=== PATIENT | male | born 1960 | race Caucasian/White ===

== ENCOUNTER 2018-09-11 06:04 | Emergency (ER) | payer MEDICAID ==
[2018-09-11] MEDS ORDERED: OXYcodone/APAP 7.5/325MG TABLET PO ONE (06:30)
[2018-09-11] MEDS ORDERED: OXYcodone/APAP 7.5/325MG TABLET ONE (06:35)
[2018-09-11 08:55] VITALS: BP 132/78
== END 2018-09-11 09:13 | disposition home or self-care (01) ==
LOC: ED 08:55
DX: S82.425A Nondisplaced transverse fracture of shaft of left fibula, initial encounter for closed fracture (principal); V29.49XA Motorcycle driver injured in collision with other motor vehicles in traffic accident, initial encounter; Y93.89 Activity, other specified; Y92.89 Other specified places as the place of occurrence of the external cause; Y99.8 Other external cause status
CPT/HCPCS: 29515; 99283